=== PATIENT | male | born 1960 | race Caucasian/White ===

== ENCOUNTER 2017-11-20 10:55 | Inpatient (IN) | payer OTHER ==
[2017-11-20 12:11] VITALS: BMI 25.8
--- NOTE | 2017-11-20 13:28 | HP ---
CIWA Score - CIWA Score Nausea/Vomitin-Mild Nausea/No Vomiting Muscle Tremors: 4-Moderate,w/Arms Extend Anxiety: 4-Mod. Anxious/Guarded Agitation: 4-Moderately Restless Paroxysmal Sweats: 3 Orientation: 0-Oriented Tacttile Disturbances: 0-None Auditory Disturbances: 0-None Visual Disturbances: 0-None Headache: 0-None Present CIWA-Ar Total Score: 16 Admission ROS BHS - HPI Chief Complaint: I need to stop drinking and get my life back. Allergies/Adverse Reactions: Allergies Allergy/AdvReac Type Severity Reaction Status Date / Time No Known Drug Allergies Allergy Verified 11/20/17 13:01 History of Present Illness: pt is a 57yr old male with a history of alcohol dependence seeking detox for treatment. pt is on a mmtp [facility] receives 80mg of methadone last dose was on saturday11/18/17, dose has been verified. Exam Limitations: No Limitations - Ebola screening Have you traveled outside of the country in the last 21 days: No (N) Have you had contact with anyone from an Ebola affected area: No Have you been sick,other than usual withdrawal symptoms: No Do you have a fever: No - Review of Systems Constitutional: Chills, Changes in sleep EENT: reports: No Symptoms Reported Respiratory: reports: Cough Cardiac: reports: No Symptoms Reported GI: reports: Nausea, Poor Appetite, Poor Fluid Intake : reports: No Symptoms Reported Musculoskeletal: reports: Muscle Pain Integumentary: reports: Flushing, Sweating Neuro: reports: Headache, Tingling, Tremors Endocrine: reports: Excessive Sweating, Flushing, Intolerance to Cold, Intolerance to Heat Hematology: reports: No Symptoms Reported Psychiatric: reports: Judgement Intact, Mood/Affect Appropiate, Orientated x3, Agitated, Anxious Other Systems: Reviewed and Negative Patient History - Patient Medical History Hx Anemia: No Hx Asthma: No Hx Chronic Obstructive Pulmonary Disease (COPD): No Hx Cancer: No Hx Cardiac Disorders: No Hx Congestive Heart Failure: No Hx Hypertension: No Hx Hypercholesterolemia: No Hx Pacemaker: No HX Cerebrovascular Accident: No Hx Seizures: No Hx Dementia: No Hx Diabetes: Yes (borderline) Hx Gastrointestinal Disorders: No Hx Liver Disease: No Hx Genitourinary Disorders: No Hx Sexually Transmitted Disorders: Yes (gonorrhea at 17 yrs) Hx Renal Disease (ESRD): No Hx Thyroid Disease: No Hx Human Immunodeficiency Virus (HIV): No (negative) Hx Hepatitis C: No (negative) Hx Depression: Yes Hx Suicide Attempt: Yes (ATTEPT TO [place] 2yrs ago/ denies any S/ H ideation today) Hx Bipolar Disorder: Yes Hx Schizophrenia: Yes - Patient Surgical History Past Surgical History: No Hx Neurologic Surgery: No Hx Cataract Extraction: No Hx Cardiac Surgery: No Hx Lung Surgery: No Hx Breast Surgery: No Hx Breast Biopsy: No Hx Abdominal Surgery: No Hx Appendectomy: No Hx Cholecystectomy: No Hx Genitourinary Surgery: No Hx Section: No Hx Orthopedic Surgery: No Anesthesia Reaction: No - PPD History Previous Implant?: Yes Documented Results: Positive w/o proof Implanted On Prior [facility] Admission?: No PPD to be Administered?: No - Reproductive History Patient is a Female of Child Bearing Age (11 -55 yrs old): No - Smoking Cessation Smoking history: Current every day smoker Have you smoked in the past 12 months: Yes Aproximately how many cigarettes per day: 20 Hx Chewing Tobacco Use: No Initiated information on smoking cessation: Yes 'Breaking Loose' booklet given: 11/20/17 - Substance & Tx. History Hx Alcohol Use: Yes Hx Substance Use: Yes Substance Use Type: Alcohol, Cocaine, Heroin Hx Substance Use Treatment: Yes (many years ago) - Substances Abused Heroin Route: Injection Frequency: Daily Amount used: 4bags Age of first use: 31 Date of Last Use: 11/19/17 Alcohol Route: Oral Frequency: Daily Amount used: beer- 12cans daily / vodka - 1pt Age of first use: 17 Date of Last Use: 11/20/17 Cocaine Route: Smoking Frequency: Daily Amount used: 5bags Age of first use: 55 Date of Last Use: 11/19/17 Family Disease History - Family Disease History Family Disease History: Diabetes: Mother, Other: Father ( 4yrs ago) Admission Physical Exam BHS - Vital Signs Vital Signs: Vital Signs - 24 hr 11/20/17 12:08 Temperature 98.7 F Pulse Rate 63 Respiratory 18 Rate Blood Pressure 136/90 - Physical General Appearance: Yes: Appropriately Dressed, Moderate Distress, Tremorous, Irritable, Sweating, Anxious HEENTM: Yes: Hearing grossly Normal, Normal Voice Respiratory: Yes: Lungs Clear, Normal Breath Sounds, No Respiratory Distress Neck: Yes: No masses,lesions,Nodules Breast: Yes: Within Normal Limits Cardiology: Yes: Regular Rhythm, Regular Rate, S1, S2 Abdominal: Yes: Normal Bowel Sounds, Non Tender, Soft Genitourinary: Yes: Within Normal Limits Back: Yes: Normal Inspection Musculoskeletal: Yes: full range of Motion Extremities: Yes: Normal Capillary Refill, Normal Inspection, Tremors Neurological: Yes: Fully Oriented, Alert, Normal Response Integumentary: Yes: Normal Color Lymphatic: Yes: Within Normal Limits - Diagnostic (1) Alcohol dependence with uncomplicated withdrawal Current Visit: Yes Status: Chronic (2) Methadone maintenance therapy patient Current Visit: Yes Status: Chronic Comment: pt missed two days of methadone. pt last took his 80mg was 11/18/17. dose has been verified. (3) Nicotine dependence Current Visit: Yes Status: Chronic Qualifiers: Nicotine product type: cigarettes Substance use status: uncomplicated Qualified Code(s): F17.210 - Nicotine dependence, cigarettes, uncomplicated (4) Cocaine dependence Current Visit: Yes Status: Chronic Qualifiers: Substance use status: uncomplicated Qualified Code(s): F14.20 - Cocaine dependence, uncomplicated Cleared for Admission [facility] - Detox or Rehab [facility] Level of Care: Medically Managed Detox Regimen/Protocol: Librium [facility] Breath Alcohol Content Breath Alcohol Content: 0.025 Urine Drug Screen - Results Drug Screen Negative: No Urine Drug Screen Results: THC-Marijuana, KAMALA-Cocaine, OPI-Opiates, MTD- Methadone
[2017-11-20] MEDS ORDERED: MENTHOL/PHENOL 1 EACH UD MM PRN (13:41)
[2017-11-20] MEDS ORDERED: NICOTINE POLACRILEX 4 MG GUM BUC PRN (13:41)
[2017-11-20] MEDS ORDERED: hydrOXYzine PAMOATE 50 MG CAPSULE (FP) PO PRN (13:41)
[2017-11-20] MEDS ORDERED: MAGNESIUM CITRATE 300 ML BOTTLE PO PRN (13:41)
[2017-11-20] MEDS ORDERED: MAGNESIUM HYDROX 2400MG/30ML ORAL SUSPENSION 30 ML CUP PO PRN (13:41)
[2017-11-20] MEDS ORDERED: ACETAMINOPHEN 325 MG TABLET (FP) PO PRN (13:41)
[2017-11-20] MEDS ORDERED: LOPERAMIDE HCL 2 MG CAPSULE PO PRN (13:41)
[2017-11-20] MEDS ORDERED: MAG HYDROX/AL HYDROX/SIMETH 30 ML UNIT-DOSE CUP PO PRN (13:41)
[2017-11-20] MEDS ORDERED: P-EPHED 60MG/TRIPROLIDI 2.5MG TABLET PO PRN (13:41)
[2017-11-20] MEDS ORDERED: METHADONE HCL 10 MG TABLET PO ONE (13:43)
[2017-11-20] MEDS ORDERED: chlordiazePOXIDE HCL 25 MG CAPSULE PO ONE (15:17)
[2017-11-20] MEDS ORDERED: METHADONE 40 MG, METHADONE 20 MG PO ONE (15:24)
[2017-11-20] MEDS ORDERED: METHADONE HCL 10 MG TABLET ONE (16:58)
[2017-11-20] MEDS ORDERED: METHADONE HCL 40 MG DISPERSABLE TABLET ONE (16:58)
[2017-11-20 17:00] LABS: URINE APPEARANCE SLCLOUDY; URINE BILIRUBIN NEGATIVE (NEGATIVE); URINE BLOOD NEGATIVE (NEGATIVE); URINE COLOR YELLOW; URINE GLUCOSE (UA) NEGATIVE (NEGATIVE); URINE KETONE NEGATIVE (NEGATIVE); URINE LEUK ESTERASE NEGATIVE (NEGATIVE); URINE NITRITE NEGATIVE (NEGATIVE); URINE PROTEIN NEGATIVE (NEGATIVE)
[2017-11-20] MEDS: chlordiazePOXIDE HCL 25 MG CAPSULE PO SCH ×2 (17:00→22:37)
[2017-11-20] MEDS: guaiFENesin/D-METHORPHAN HB 10 ML UNIT-DOSE CUPS PO PRN (20:20)
[2017-11-20] MEDS: THIAMINE HCL 100 MG TABLET (FP) PO SCH (22:37)
[2017-11-21] MEDS: guaiFENesin/D-METHORPHAN HB 10 ML UNIT-DOSE CUPS PO PRN ×3 (02:31→22:51)
[2017-11-21] MEDS ORDERED: METHADONE HCL 10 MG TABLET ONE (04:07)
[2017-11-21] MEDS ORDERED: METHADONE HCL 40 MG DISPERSABLE TABLET ONE (04:07)
[2017-11-21] MEDS: chlordiazePOXIDE HCL 25 MG CAPSULE PO SCH ×4 (05:45→22:18)
[2017-11-21] MEDS ORDERED: METHADONE 40 MG, METHADONE 30 MG PO ONE (06:00)
[2017-11-21] MEDS ORDERED: METHADONE HCL 10 MG TABLET PO ONE (06:00)
--- NOTE | 2017-11-21 09:13 | EKG ---
Test Reason : Blood Pressure : / mmHG Vent. Rate : 068 BPM Atrial Rate : 068 BPM P-R Int : 124 ms QRS Dur : 088 ms QT Int : 408 ms P-R-T Axes : 062 016 041 degrees QTc Int : 433 ms NORMAL SINUS RHYTHM NORMAL ECG NO PREVIOUS ECGS AVAILABLE Confirmed by DARIO RODRIGUEZ, TU ([id number]) on 11/21/2017 9:12:49 AM Referred By: Confirmed By:TU BISHOP MD
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
[2017-11-21 09:55] LABS: HEMOGLOBIN 14.3 GM/dL (11.7-16.9); MCH 29.6 pg (25.7-33.7); MCHC 32.5 g/dl (32.0-35.9); MEAN PLT VOLUME 9.4 fl (7.5-11.1); PLATELET COUNT 186 K/MM3 (134-434); RBC 4.83 M/mm3 (4.00-5.60); RDW 15.3 % (11.9-15.9); WHITE BLOOD COUNT 3.5 K/mm3 (4.0-10.0)
[2017-11-21] MEDS: PRENATAL VITAMINS W/ FOLIC ACID TABLET (FP) PO SCH (10:01)
[2017-11-21] MEDS: NICOTINE 21 MG/24 HOURS TOPICAL PATCH TD SCH (10:02)
[2017-11-21 10:09] LABS: CHLORIDE 103 mmol/L (98-107); POTASSIUM 4.4 mmol/L (3.5-5.1); SODIUM 137 mmol/L (136-145)
[2017-11-21 10:37] LABS: ALK PHOS 97 U/L (45-117); ANION GAP 8 (8-16); BILIRUBIN,TOTAL 0.5 mg/dL (0.2-1.0); BLOOD UREA NITROGEN 7 mg/dL (7-18); CALCIUM 8.6 mg/dL (8.5-10.1); CO2 26 mmol/L (21-32); CREATININE 0.8 mg/dL (0.7-1.3); GLUCOSE,RANDOM 79 mg/dL (74-106); SGOT/AST 25 U/L (15-37); SGPT/ALT 23 U/L (12-78)
--- NOTE | 2017-11-21 11:10 | PN ---
S CIWA - CIWA Score Nausea/Vomitin-Mild Nausea/No Vomiting Muscle Tremors: 3 Anxiety: 3 Agitation: 1-Slight > Activity Paroxysmal Sweats: 2 Orientation: 0-Oriented Tacttile Disturbances: 1-Very Mild Itch/Numbness Auditory Disturbances: 1-Very Mild Visual Disturbances: 1-Very Mild Sensitivity Headache: 0-None Present CIWA-Ar Total Score: 13 BHS Progress Note (SOAP) Subjective: Interrupted sleep, fatigue, night sweats, cough Objective: 11/21/17 11:08 Last Vital Signs Temp Pulse Resp BP Pulse Ox 98.4 F 67 18 129/66 11/21/17 09:30 11/21/17 09:30 11/21/17 09:30 11/21/17 09:30 Laboratory Last Values WBC 3.5 K/mm3 (4.0-10.0) L 11/21/17 06:00 RBC 4.83 M/mm3 (4.00-5.60) 11/21/17 06:00 Hgb 14.3 GM/dL (11.7-16.9) 11/21/17 06:00 Hct 44.0 % (35.4-49) 11/21/17 06:00 MCV 91.0 fl (80-96) 11/21/17 06:00 MCH 29.6 pg (25.7-33.7) 11/21/17 06:00 MCHC 32.5 g/dl (32.0-35.9) 11/21/17 06:00 RDW 15.3 % (11.9-15.9) 11/21/17 06:00 Plt Count 186 K/MM3 (134-434) 11/21/17 06:00 MPV 9.4 fl (7.5-11.1) 11/21/17 06:00 Sodium 137 mmol/L (136-145) 11/21/17 06:00 Potassium 4.4 mmol/L (3.5-5.1) 11/21/17 06:00 Chloride 103 mmol/L (98-107) 11/21/17 06:00 Carbon Dioxide 26 mmol/L (21-32) 11/21/17 06:00 Anion Gap 8 (8-16) 11/21/17 06:00 BUN 7 mg/dL (7-18) 11/21/17 06:00 Creatinine 0.8 mg/dL (0.7-1.3) 11/21/17 06:00 Creat Clearance w eGFR > 60 (>60) 11/21/17 06:00 POC Glucometer 118 UNITS (80-120) 11/20/17 14:23 Random Glucose 79 mg/dL (74-106) 11/21/17 06:00 Calcium 8.6 mg/dL (8.5-10.1) 11/21/17 06:00 Total Bilirubin 0.5 mg/dL (0.2-1.0) 11/21/17 06:00 AST 25 U/L (15-37) 11/21/17 06:00 ALT 23 U/L (12-78) 11/21/17 06:00 Alkaline Phosphatase 97 U/L (45-117) 11/21/17 06:00 Total Protein 8.0 g/dl (6.4-8.2) 11/21/17 06:00 Albumin 4.0 g/dl (3.4-5.0) 11/21/17 06:00 Urine Color Yellow 11/20/17 15:00 Urine Appearance Slcloudy 11/20/17 15:00 Urine pH 6.0 (5.0-8.0) 11/20/17 15:00 Ur Specific [place] 1.018 (1.001-1.035) 11/20/17 15:00 Urine Protein Negative (NEGATIVE) 11/20/17 15:00 Urine Glucose (UA) Negative (NEGATIVE) 11/20/17 15:00 Urine Ketones Negative (NEGATIVE) 11/20/17 15:00 Urine Blood Negative (NEGATIVE) 11/20/17 15:00 Urine Nitrite Negative (NEGATIVE) 11/20/17 15:00 Urine Bilirubin Negative (NEGATIVE) 11/20/17 15:00 Urine Urobilinogen 2.0 mg/dL (0.2-1.0) 11/20/17 15:00 Ur Leukocyte Esterase Negative (NEGATIVE) 11/20/17 15:00 Labs noted Assessment: 11/21/17 11:08 withdrawal symptoms Plan: Continue detox Encourage to increase fluids for hydration
[2017-11-21] MEDS ORDERED: PNEUMOCOCCAL 23 VACCINE 0.5 ML VIAL IM ONE (12:00)
[2017-11-21] MEDS ORDERED: FLU VACCINE QUAD 60 MCG/0.5 ML (MDV 17-18) IM ONE (12:00)
[2017-11-21] MEDS ORDERED: PNEUMOC 13-VAL CONJ-DIP CRM/PF 0.5 ML DISP.SYRIN IM ONE (12:00)
[2017-11-21] MEDS: chlordiazePOXIDE HCL 25 MG CAPSULE PO PRN (15:06)
[2017-11-21] MEDS: ZOLPIDEM TARTRATE 10 MG TABLET (PARK CARE ONLY) PO PRN (22:18)
[2017-11-21] MEDS: THIAMINE HCL 100 MG TABLET (FP) PO SCH (22:19)
[2017-11-22] MEDS: guaiFENesin/D-METHORPHAN HB 10 ML UNIT-DOSE CUPS PO PRN (04:59)
[2017-11-22] MEDS: METHADONE HCL 40 MG DISPERSABLE TABLET PO SCH (05:34)
[2017-11-22] MEDS: chlordiazePOXIDE HCL 25 MG CAPSULE PO SCH ×2 (05:35→10:12)
[2017-11-22] MEDS: NICOTINE 21 MG/24 HOURS TOPICAL PATCH TD SCH (10:12)
[2017-11-22] MEDS: PRENATAL VITAMINS W/ FOLIC ACID TABLET (FP) PO SCH (10:12)
--- NOTE | 2017-11-22 11:49 | PN ---
S CIWA - CIWA Score Nausea/Vomitin-Int. Nausea w/Dry Heave Muscle Tremors: 3 Anxiety: 4-Mod. Anxious/Guarded Agitation: 4-Moderately Restless Paroxysmal Sweats: 3 Orientation: 0-Oriented Tacttile Disturbances: 0-None Auditory Disturbances: 0-None Visual Disturbances: 0-None Headache: 2-Mild CIWA-Ar Total Score: 20 BHS Progress Note (SOAP) Subjective: Nausea, anxious, sweating, headache, mood swing, interrupted sleep. Patient requesting christiano bandage to wrap right arm stating it hurts and the bandage will help it. Objective: 11/22/17 11:46 Last Vital Signs Temp Pulse Resp BP Pulse Ox 97.8 F 65 18 102/71 11/22/17 10:15 11/22/17 10:15 11/22/17 10:15 11/22/17 10:15 Laboratory Tests 11/20/17 11/20/17 11/20/17 06:00 14:23 15:00 WBC RBC Hgb Hct MCV MCH MCHC RDW Plt Count MPV Sodium Potassium Chloride Carbon Dioxide Anion Gap BUN Creatinine Creat Clearance w eGFR POC Glucometer 118 Random Glucose Calcium Total Bilirubin AST ALT Alkaline Phosphatase Total Protein Albumin Urine Color Yellow Urine Appearance Slcloudy Urine pH 6.0 Ur Specific [place] 1.018 Urine Protein Negative Urine Glucose (UA) Negative Urine Ketones Negative Urine Blood Negative Urine Nitrite Negative Urine Bilirubin Negative Urine Urobilinogen 2.0 Ur Leukocyte Esterase Negative RPR Titer HIV 1&2 Antibody Screen Negative HIV P24 Antigen Negative 11/21/17 11/21/17 11/21/17 06:00 06:00 06:00 WBC 3.5 L RBC 4.83 Hgb 14.3 Hct 44.0 MCV 91.0 MCH 29.6 MCHC 32.5 RDW 15.3 Plt Count 186 MPV 9.4 Sodium 137 Potassium 4.4 Chloride 103 Carbon Dioxide 26 Anion Gap 8 BUN 7 Creatinine 0.8 Creat Clearance w eGFR > 60 POC Glucometer Random Glucose 79 Calcium 8.6 Total Bilirubin 0.5 AST 25 ALT 23 Alkaline Phosphatase 97 Total Protein 8.0 Albumin 4.0 Urine Color Urine Appearance Urine pH Ur Specific [place] Urine Protein Urine Glucose (UA) Urine Ketones Urine Blood Urine Nitrite Urine Bilirubin Urine Urobilinogen Ur Leukocyte Esterase RPR Titer Nonreactive HIV 1&2 Antibody Screen HIV P24 Antigen Labs noted Assessment: 11/22/17 11:47 Withdrawal symptoms Plan: Continue detox Encouraged to drink lots of water for hydration
[2017-11-22] MEDS: chlordiazePOXIDE HCL 25 MG CAPSULE PO PRN (15:18)
[2017-11-22] MEDS: chlordiazePOXIDE 5 MG CAPSULE PO SCH ×2 (16:47→22:24)
[2017-11-22] MEDS: IBUPROFEN 400 MG TABLET (FP) PO PRN (20:21)
[2017-11-22] MEDS: THIAMINE HCL 100 MG TABLET (FP) PO SCH (22:23)
[2017-11-22] MEDS: ZOLPIDEM TARTRATE 10 MG TABLET (PARK CARE ONLY) PO PRN (22:23)
[2017-11-23] MEDS: guaiFENesin/D-METHORPHAN HB 10 ML UNIT-DOSE CUPS PO PRN ×2 (02:01→12:59)
[2017-11-23] MEDS: chlordiazePOXIDE 5 MG CAPSULE PO SCH ×2 (05:12→10:07)
[2017-11-23] MEDS: METHADONE HCL 40 MG DISPERSABLE TABLET PO SCH (05:13)
[2017-11-23] MEDS: PRENATAL VITAMINS W/ FOLIC ACID TABLET (FP) PO SCH (10:07)
[2017-11-23] MEDS: NICOTINE 21 MG/24 HOURS TOPICAL PATCH TD SCH (10:07)
--- NOTE | 2017-11-23 12:42 | PN ---
BHS Progress Note (SOAP) Subjective: Abdominal cramps,dizzy, shakes and generalized pain Objective: 11/23/17 12:42 Vital Signs - 8 hr 11/23/17 11/23/17 06:43 09:22 Temperature 97.7 F 98.6 F Pulse Rate 62 55 L Respiratory 18 18 Rate Blood Pressure 105/54 110/66 Laboratory Last Values WBC 3.5 K/mm3 (4.0-10.0) L 11/21/17 06:00 RBC 4.83 M/mm3 (4.00-5.60) 11/21/17 06:00 Hgb 14.3 GM/dL (11.7-16.9) 11/21/17 06:00 Hct 44.0 % (35.4-49) 11/21/17 06:00 MCV 91.0 fl (80-96) 11/21/17 06:00 MCH 29.6 pg (25.7-33.7) 11/21/17 06:00 MCHC 32.5 g/dl (32.0-35.9) 11/21/17 06:00 RDW 15.3 % (11.9-15.9) 11/21/17 06:00 Plt Count 186 K/MM3 (134-434) 11/21/17 06:00 MPV 9.4 fl (7.5-11.1) 11/21/17 06:00 Sodium 137 mmol/L (136-145) 11/21/17 06:00 Potassium 4.4 mmol/L (3.5-5.1) 11/21/17 06:00 Chloride 103 mmol/L (98-107) 11/21/17 06:00 Carbon Dioxide 26 mmol/L (21-32) 11/21/17 06:00 Anion Gap 8 (8-16) 11/21/17 06:00 BUN 7 mg/dL (7-18) 11/21/17 06:00 Creatinine 0.8 mg/dL (0.7-1.3) 11/21/17 06:00 Creat Clearance w eGFR > 60 (>60) 11/21/17 06:00 POC Glucometer 118 UNITS (80-120) 11/20/17 14:23 Random Glucose 79 mg/dL (74-106) 11/21/17 06:00 Calcium 8.6 mg/dL (8.5-10.1) 11/21/17 06:00 Total Bilirubin 0.5 mg/dL (0.2-1.0) 11/21/17 06:00 AST 25 U/L (15-37) 11/21/17 06:00 ALT 23 U/L (12-78) 11/21/17 06:00 Alkaline Phosphatase 97 U/L (45-117) 11/21/17 06:00 Total Protein 8.0 g/dl (6.4-8.2) 11/21/17 06:00 Albumin 4.0 g/dl (3.4-5.0) 11/21/17 06:00 Urine Color Yellow 11/20/17 15:00 Urine Appearance Slcloudy 11/20/17 15:00 Urine pH 6.0 (5.0-8.0) 11/20/17 15:00 Ur Specific [place] 1.018 (1.001-1.035) 11/20/17 15:00 Urine Protein Negative (NEGATIVE) 11/20/17 15:00 Urine Glucose (UA) Negative (NEGATIVE) 11/20/17 15:00 Urine Ketones Negative (NEGATIVE) 11/20/17 15:00 Urine Blood Negative (NEGATIVE) 11/20/17 15:00 Urine Nitrite Negative (NEGATIVE) 11/20/17 15:00 Urine Bilirubin Negative (NEGATIVE) 11/20/17 15:00 Urine Urobilinogen 2.0 mg/dL (0.2-1.0) 11/20/17 15:00 Ur Leukocyte Esterase Negative (NEGATIVE) 11/20/17 15:00 RPR Titer Nonreactive (NONREACTIVE) 11/21/17 06:00 HIV 1&2 Antibody Screen Negative 11/20/17 06:00 HIV P24 Antigen Negative 11/20/17 06:00 Labs noted Assessment: 11/23/17 12:42 Withdrawal sx Plan: Continue detox
[2017-11-23] MEDS: chlordiazePOXIDE HCL 25 MG CAPSULE PO PRN (12:59)
[2017-11-23] MEDS: chlordiazePOXIDE HCL 10 MG CAPSULE PO SCH ×2 (17:20→22:10)
[2017-11-23] MEDS: ZOLPIDEM TARTRATE 10 MG TABLET (PARK CARE ONLY) PO PRN (22:10)
[2017-11-23] MEDS: THIAMINE HCL 100 MG TABLET (FP) PO SCH (22:10)
[2017-11-23] MEDS: IBUPROFEN 400 MG TABLET (FP) PO PRN (22:51)
[2017-11-24] MEDS: METHADONE HCL 40 MG DISPERSABLE TABLET PO SCH (05:41)
[2017-11-24] MEDS: chlordiazePOXIDE HCL 10 MG CAPSULE PO SCH ×2 (05:41→10:52)
[2017-11-24] MEDS: guaiFENesin/D-METHORPHAN HB 10 ML UNIT-DOSE CUPS PO PRN ×2 (05:48→23:39)
[2017-11-24] MEDS: NICOTINE 21 MG/24 HOURS TOPICAL PATCH TD SCH (10:52)
[2017-11-24] MEDS: PRENATAL VITAMINS W/ FOLIC ACID TABLET (FP) PO SCH (10:52)
--- NOTE | 2017-11-24 14:08 | PN ---
BHS Progress Note (SOAP) Subjective: Interrupted Sleep, H/A, Stomach Cramping. Objective: PT. A & O X 2 (UNCERTAIN ABOUT CURRENT DAY / DATE). PT. OBSERVED AMBULATING ON UNIT. NO ACUTE DISTRESS. 11/24/17 14:05 Vital Signs Temperature 98.6 F 11/24/17 09:54 Pulse Rate 63 11/24/17 09:54 Respiratory Rate 18 11/24/17 09:54 Blood Pressure 101/65 11/24/17 09:54 O2 Sat by Pulse Oximetry (%) Laboratory Tests 11/20/17 11/20/17 11/20/17 06:00 14:23 15:00 WBC RBC Hgb Hct MCV MCH MCHC RDW Plt Count MPV Sodium Potassium Chloride Carbon Dioxide Anion Gap BUN Creatinine Creat Clearance w eGFR POC Glucometer 118 Random Glucose Calcium Total Bilirubin AST ALT Alkaline Phosphatase Total Protein Albumin Urine Color Yellow Urine Appearance Slcloudy Urine pH 6.0 Ur Specific [place] 1.018 Urine Protein Negative Urine Glucose (UA) Negative Urine Ketones Negative Urine Blood Negative Urine Nitrite Negative Urine Bilirubin Negative Urine Urobilinogen 2.0 Ur Leukocyte Esterase Negative RPR Titer HIV 1&2 Antibody Screen Negative HIV P24 Antigen Negative 11/21/17 11/21/17 11/21/17 06:00 06:00 06:00 WBC 3.5 L RBC 4.83 Hgb 14.3 Hct 44.0 MCV 91.0 MCH 29.6 MCHC 32.5 RDW 15.3 Plt Count 186 MPV 9.4 Sodium 137 Potassium 4.4 Chloride 103 Carbon Dioxide 26 Anion Gap 8 BUN 7 Creatinine 0.8 Creat Clearance w eGFR > 60 POC Glucometer Random Glucose 79 Calcium 8.6 Total Bilirubin 0.5 AST 25 ALT 23 Alkaline Phosphatase 97 Total Protein 8.0 Albumin 4.0 Urine Color Urine Appearance Urine pH Ur Specific [place] Urine Protein Urine Glucose (UA) Urine Ketones Urine Blood Urine Nitrite Urine Bilirubin Urine Urobilinogen Ur Leukocyte Esterase RPR Titer Nonreactive HIV 1&2 Antibody Screen HIV P24 Antigen LABS NOTED. Assessment: 11/24/17 14:06 WITHDRAWAL SYMPTOMS. Plan: CONTINUE DETOX.
[2017-11-24] MEDS: THIAMINE HCL 100 MG TABLET (FP) PO SCH (22:06)
[2017-11-25] MEDS: IBUPROFEN 400 MG TABLET (FP) PO PRN (01:13)
[2017-11-25] MEDS: METHADONE HCL 40 MG DISPERSABLE TABLET PO SCH (05:51)
[2017-11-25 06:36] VITALS: BP 114/80; PULSE 62; TEMP 98
--- NOTE | 2017-11-25 12:17 | DS ---
[facility] Summary Admission Date: 11/20/17 Discharge Date: 11/25/17 - History Pertinent Past History: Borderline DM - Physical Exam Results Vital Signs: Vital Signs Temperature 98.0 F 11/25/17 06:35 Pulse Rate 62 11/25/17 06:35 Respiratory Rate 16 11/25/17 06:35 Blood Pressure 114/80 11/25/17 06:35 O2 Sat by Pulse Oximetry (%) Pertinent Admission Physical Exam Findings: withdrawal sx Laboratory Last Values WBC 3.5 K/mm3 (4.0-10.0) L 11/21/17 06:00 RBC 4.83 M/mm3 (4.00-5.60) 11/21/17 06:00 Hgb 14.3 GM/dL (11.7-16.9) 11/21/17 06:00 Hct 44.0 % (35.4-49) 11/21/17 06:00 MCV 91.0 fl (80-96) 11/21/17 06:00 MCH 29.6 pg (25.7-33.7) 11/21/17 06:00 MCHC 32.5 g/dl (32.0-35.9) 11/21/17 06:00 RDW 15.3 % (11.9-15.9) 11/21/17 06:00 Plt Count 186 K/MM3 (134-434) 11/21/17 06:00 MPV 9.4 fl (7.5-11.1) 11/21/17 06:00 Sodium 137 mmol/L (136-145) 11/21/17 06:00 Potassium 4.4 mmol/L (3.5-5.1) 11/21/17 06:00 Chloride 103 mmol/L (98-107) 11/21/17 06:00 Carbon Dioxide 26 mmol/L (21-32) 11/21/17 06:00 Anion Gap 8 (8-16) 11/21/17 06:00 BUN 7 mg/dL (7-18) 11/21/17 06:00 Creatinine 0.8 mg/dL (0.7-1.3) 11/21/17 06:00 Creat Clearance w eGFR > 60 (>60) 11/21/17 06:00 POC Glucometer 118 UNITS (80-120) 11/20/17 14:23 Random Glucose 79 mg/dL (74-106) 11/21/17 06:00 Calcium 8.6 mg/dL (8.5-10.1) 11/21/17 06:00 Total Bilirubin 0.5 mg/dL (0.2-1.0) 11/21/17 06:00 AST 25 U/L (15-37) 11/21/17 06:00 ALT 23 U/L (12-78) 11/21/17 06:00 Alkaline Phosphatase 97 U/L (45-117) 11/21/17 06:00 Total Protein 8.0 g/dl (6.4-8.2) 11/21/17 06:00 Albumin 4.0 g/dl (3.4-5.0) 11/21/17 06:00 Urine Color Yellow 11/20/17 15:00 Urine Appearance Slcloudy 11/20/17 15:00 Urine pH 6.0 (5.0-8.0) 11/20/17 15:00 Ur Specific [place] 1.018 (1.001-1.035) 11/20/17 15:00 Urine Protein Negative (NEGATIVE) 11/20/17 15:00 Urine Glucose (UA) Negative (NEGATIVE) 11/20/17 15:00 Urine Ketones Negative (NEGATIVE) 11/20/17 15:00 Urine Blood Negative (NEGATIVE) 11/20/17 15:00 Urine Nitrite Negative (NEGATIVE) 11/20/17 15:00 Urine Bilirubin Negative (NEGATIVE) 11/20/17 15:00 Urine Urobilinogen 2.0 mg/dL (0.2-1.0) 11/20/17 15:00 Ur Leukocyte Esterase Negative (NEGATIVE) 11/20/17 15:00 RPR Titer Nonreactive (NONREACTIVE) 11/21/17 06:00 HIV 1&2 Antibody Screen Negative 11/20/17 06:00 HIV P24 Antigen Negative 11/20/17 06:00 Vital Signs Temperature 98.0 F 11/25/17 06:35 Pulse Rate 62 11/25/17 06:35 Respiratory Rate 16 11/25/17 06:35 Blood Pressure 114/80 11/25/17 06:35 O2 Sat by Pulse Oximetry (%) - Treatment Hospital Course: Detox Protocol Followed, Detoxed Safely, Responded well, Discharged Condition Good, Rehab Referral Accepted Patient has Accepted a Rehab Referral to: F/u [facility], O/P AA meetings - Medication Discharge Medications: Ambulatory Orders Amitriptyline HCl [Elavil -] 25 mg PO HS 11/22/17 Zolpidem Tartrate [Ambien] 10 mg PO HS PRN 11/22/17 - Diagnosis (1) Alcohol dependence with uncomplicated withdrawal Current Visit: Yes Status: Acute (2) Methadone maintenance therapy patient Current Visit: Yes Status: Chronic (3) Nicotine dependence Current Visit: Yes Status: Chronic Qualifiers: Nicotine product type: cigarettes Substance use status: uncomplicated Qualified Code(s): F17.210 - Nicotine dependence, cigarettes, uncomplicated
== END 2017-11-25 10:04 | disposition home or self-care (01) | DRG 773 ==
LOC: YASAS 10:55 → Y3N 15:08
PROVIDERS: ADMIT Internal Medicine; ATTEND Internal Medicine
PROC: HZ2ZZZZ Detoxification Services for Substance Abuse Treatment (ICD-10-PCS; principal; 2017-11-20)
DX: F10.230 Alcohol dependence with withdrawal, uncomplicated (principal); F11.20 Opioid dependence, uncomplicated; F14.20 Cocaine dependence, uncomplicated; F17.210 Nicotine dependence, cigarettes, uncomplicated; F31.9 Bipolar disorder, unspecified; F20.9 Schizophrenia, unspecified; R73.03 Prediabetes; R76.11 Nonspecific reaction to tuberculin skin test without active tuberculosis; G47.00 Insomnia, unspecified; Z87.438 Personal history of other diseases of male genital organs; Z91.5 Personal history of self-harm
CPT/HCPCS: 36415; 71046-TC; 80053; 81003; 82962; 85027; 86593; 87389; 90688; 90732; 93005; 93010; G0009